=== PATIENT | female | born 1985 | race Caucasian/White ===

== ENCOUNTER 2018-07-25 19:46 | Emergency (ER) | payer MEDICAID ==
[~2018-07-25] VITALS: Ht 132.1 cm; Wt 44.5 kg
[2018-07-25 20:05] VITALS: BP 111/77
[2018-07-25] MEDS ORDERED: NEOMYCIN/POLYMYXIN/BACITRACIN 0.9 GM/1 PKT TP ONE (20:40)
[2018-07-25 20:55] VITALS: BP 110/72
== END 2018-07-25 20:56 | disposition home or self-care (01) ==
LOC: MED 19:46
DX: L89.612 Pressure ulcer of right heel, stage 2 (principal); I10 Essential (primary) hypertension; Z91.040 Latex allergy status; Z88.6 Allergy status to analgesic agent
CPT/HCPCS: 99283